=== PATIENT | female | born 1955 | race Caucasian/White ===

== ENCOUNTER 2023-01-15 11:41 | Outpatient (CLI) | payer OTHER, SELFPAY | END 2023-01-15 11:42 | disposition home or self-care (01) | PROVIDERS: PCP Family Medicine; Visit Provider Family Medicine | DX: M35.00 Sjogren syndrome, unspecified (principal); I10 Essential (primary) hypertension; R73.03 Prediabetes; R53.83 Other fatigue; E66.01 Morbid (severe) obesity due to excess calories | CPT/HCPCS: 80053; 80061; 82043; 82306; 82570; 82607; 83735; 84443 ==

== ENCOUNTER 2023-05-18 11:15 | Outpatient (RCR) | payer OTHER, SELFPAY | END 2023-09-15 23:59 | disposition home or self-care (01) | PROVIDERS: PCP Family Medicine; Visit Provider Family Medicine | DX: M54.41 Lumbago with sciatica, right side (principal); M54.42 Lumbago with sciatica, left side; G89.29 Other chronic pain; M35.00 Sjogren syndrome, unspecified; M19.90 Unspecified osteoarthritis, unspecified site; Z51.89 Encounter for other specified aftercare | CPT/HCPCS: 97110; 97162 ==

== ENCOUNTER 2023-08-19 11:26 | Outpatient (CLI) | payer OTHER, SELFPAY | END 2023-08-19 11:27 | disposition home or self-care (01) | LOC: FRMREF 11:27 | PROVIDERS: PCP Family Medicine; Visit Provider Family Medicine | DX: E87.6 Hypokalemia (principal) | CPT/HCPCS: 80048 ==

== ENCOUNTER 2024-04-22 10:02 | Inpatient (IN) | payer OTHER, SELFPAY ==
[2024-04-22] VITALS (31 sets, daily range): BP systolic 107–140; BP diastolic 47–91; PULSE 83–97; RESP 18–24; TEMP 36.4–36.9; O2SAT 90–97; BMI 49.4; BMI 49.6
--- NOTE | 2024-04-22 10:42 | ED.GENADULT ---
HPI - General Adult General Time Seen by Provider: 10:42 Date Seen: 04/22/24 Chief complaint: Weakness Stated complaint: difficulty breathing or GI block or kidney inf Time Seen by Provider: 04/22/24 10:42 Source: patient, family and RN notes reviewed Mode of arrival: wheelchair Limitations: no limitations History of Present Illness HPI narrative: This 68-year-old female is coming in with ongoing fatigue and weakness. Over a week ago she thought she was getting the flu. She also went to physical therapy for the 1st time and notes her muscles hurt. day, yesterday she had a terrible headache and she has been having abdominal pain as well. She is run temperatures, been sleeping more. She has a sore throat, nasal congestion. She does have a history of Sjogren's. She has been trying the ice problematic areas and rest. She is feeling excessively weak, feels like she can not walker keep her balance. She did improve some, ended up going to work on Thursday and then had rebound of symptoms yesterday. She has not been able to check her temperature she does not have a thermometer but has felt like she has had temperatures and is chilled at times. She feels like she is still passing some gas, had bowel movements yesterday. She stating her whole stomach hurts. She states her lungs do not feel right, she is endorsing postnasal drainage. She does have some cough but it certainly not excessive. She is not feeling short of breath. Her overall complaint is fatigue and weakness. She did do a home COVID test early on and was negative. She states she has had COVID multiple times before. Related Data Home Medications ?Medication ?Instructions ?Recorded ?Confirmed hydroxychloroquine 200 mg tablet mg PO TID 01/15/23 12/03/23 vitamin B complex 1 tab PO QDAY 08/19/23 12/03/23 Previous Rx's ?Medication ?Instructions ?Recorded albuterol sulfate 90 mcg/actuation 2 inh inhalation Q6-8H PRN 10/14/23 aerosol inhaler shortness of breath or wheezing #8.5 grams amlodipine 5 mg tablet 5 mg PO QDAY #90 tabs 10/14/23 celecoxib 400 mg capsule 400 mg PO QDAY #90 caps 10/14/23 duloxetine 60 mg capsule,delayed 60 mg PO QDAY #90 caps 10/14/23 release lisinopril 20 2 tab PO DAILY #180 tabs 10/14/23 mg-hydrochlorothiazide 12.5 mg tablet potassium chloride 20 mEq 20 meq PO DAILY #90 tabs 11/09/23 tablet,extended release(part/cryst) gabapentin 600 mg tablet 600 mg PO TID #270 tabs 04/12/24 Allergies Allergy/AdvReac Type Severity Reaction Status Date / Time penicillin V Allergy Mild Unknown Verified 04/22/24 13:11 silver Allergy Unknown infection Verified 04/22/24 13:11 titanium Allergy Unknown infection Verified 04/22/24 13:11 Review of Systems Status of ROS: Reports: 6 or more systems reviewed and unremarkable except as noted in History and below [facility] Medical History Positive colorectal cancer screening using DNA-based stool test ?R19.5 - Other fecal abnormalities (ICD-10) Methicillin resistant Staphylococcus aureus infection (10/09/10) ?A49.02 - Methicillin resistant Staphylococcus aureus infection, unspecified site (ICD-10) Basal cell carcinoma (12/08/08) ?C44.91 - Basal cell carcinoma of skin, unspecified (ICD-10) Surgical History History of ankle surgery (2009) ?Z98.890 - Other specified postprocedural states (ICD-10) History of tonsillectomy (12/08/08) ?Z90.89 - Acquired absence of other organs (ICD-10) History of hysterectomy (12/08/08) ?Z90.710 - Acquired absence of both cervix and uterus (ICD-10) History of dilation and curettage (12/08/08) ?Z98.890 - Other specified postprocedural states (ICD-10) History of colonoscopy ?Z98.890 - Other specified postprocedural states (ICD-10) History of cholecystectomy (12/08/08) ?Z90.49 - Acquired absence of other specified parts of digestive tract (ICD-10) Family History Other Alzheimers disease High blood pressure Substance abuse Social History Narrative: 3 children Non-smoker Smoking Status: Never smoker Little interest or pleasure in doing things: not at all Feeling down, depressed, or hopeless: several days Exam Const: Vital Signs, click to edit/add: Vital Signs - 24 hr 04/22/24 10:09 04/22/24 10:46 04/22/24 11:18 Temperature 97.5 F L Pulse Rate 91 Pulse Rate [Pulse Oximeter] 91 Respiratory Rate 22 Blood Pressure 132/63 Blood Pressure [Ri ght Upper Arm] 140/54 H Pulse Oximetry 95 93 93 Oxygen Delivery Me thod Room Air 04/22/24 11:19 04/22/24 11:30 04/22/24 11:32 Temperature Pulse Rate 95 87 89 Pulse Rate [Pulse Oximeter] Respiratory Rate Blood Pressure 129/56 L Blood Pressure [Ri ght Upper Arm] Pulse Oximetry 93 92 Oxygen Delivery Me thod 04/22/24 11:45 04/22/24 12:00 04/22/24 12:02 Temperature Pulse Rate 87 89 87 Pulse Rate [Pulse Oximeter] Respiratory Rate Blood Pressure 111/61 Blood Pressure [Ri ght Upper Arm] Pulse Oximetry 93 93 94 Oxygen Delivery Me thod 04/22/24 12:03 04/22/24 12:15 04/22/24 12:30 Temperature Pulse Rate 87 90 92 Pulse Rate [Pulse Oximeter] Respiratory Rate Blood Pressure Blood Pressure [Ri ght Upper Arm] Pulse Oximetry 94 92 90 Oxygen Delivery Me thod 04/22/24 12:32 04/22/24 12:45 04/22/24 13:09 Temperature Pulse Rate 90 90 89 Pulse Rate [Pulse Oximeter] Respiratory Rate Blood Pressure 119/53 L Blood Pressure [Ri ght Upper Arm] Pulse Oximetry 91 92 95 Oxygen Delivery Me thod 04/22/24 13:15 04/22/24 13:24 04/22/24 13:31 Temperature Pulse Rate 86 91 90 Pulse Rate [Pulse Oximeter] Respiratory Rate Blood Pressure 133/63 Blood Pressure [Ri ght Upper Arm] Pulse Oximetry 92 94 94 Oxygen Delivery Me thod 04/22/24 13:32 Temperature Pulse Rate 91 Pulse Rate [Pulse Oximeter] Respiratory Rate Blood Pressure 131/89 Blood Pressure [Ri ght Upper Arm] Pulse Oximetry 94 Oxygen Delivery Me thod This 68-year-old female is alert, interactive, no apparent distress. She does have significant obesity. Sclera clear, conjugate gaze. Symmetrical facial function. She of some mild erythema in the posterior pharynx, looks have a small whitish lesion just to the right of the base of her uvula but the uvula is not swollen or enlarged. Speech is normal, able to speak in complete sentences. Neck thick but no masses or adenopathy. Lungs are clear, good air entry, wheeze or crackles. CV regular rate and rhythm, soft systolic ejection murmur heard upper sternal borders. Normal S1-S2 no S3-S4. Abdomen is obese but soft, mild diffuse tenderness. Body habitus makes it difficult for definitive abdominal examination but do not feel any masses, organomegaly at this time. She is moving extremities equally, no evidence of any rash noted. She was brought back in a wheelchair due to her complaints of weakness. Documenting provider has reviewed patient's vital signs: yes Course Course ED Course: This patient is coming in with complaints of pain, weakness fatigue, infectious etiology are certainly a concern here including COVID which we have been seen again. With her abdominal pain this certainly also maybe intra-abdominal pathology, urinary, other sources will be considered. She is giving some nonspecific lung complaints, will do imaging of her chest abdomen pelvis just to see if we can find the source of her complaints. Reevaluation(s) Time of Reevaluation #1: 12:55 Reevaluation #1: Have reviewed patient's urinalysis, will initiate Rocephin for presumed urinary tract infection. Still awaiting CT imaging to be done. Patient was given some Tylenol for complaint of low back pain, nursing staff also gave her an ice pack which is reportedly helping. Consultations Consultation #1: Reviewed with the night hospitalist Dr. Erazo. He is going to look at this patient, see if she is appropriate to stay here or we can look at transfer if need be although it seems that bed availability may be problematic elsewhere. 2:33pm: Dr. Erazo is down here to see patient, besides the right kidney changes, there is right lung changes concerning for pneumonia. Her white blood count is elevated, C reactive protein and procalcitonin elevated. Her hemodynamics are stable common no evidence for sepsis based on this. Will add in 500 mg oral azithromycin upon discussion with Dr. Erazo. This will cover for pneumonia. IV Rocephin should be sufficient for the urinary tract infection, pyelonephritis. There is no definitive abscess formation at this time. I a had looked at her prior records, no evidence of any prior urine cultures. Time: 14:15 Vital Signs Vital signs: Initial Vital Signs Temperature 97.5 F L 04/22/24 10:09 Temperature Source Temporal Artery Scan 04/22/24 10:09 Pulse Rate 91 04/22/24 10:09 Respiratory Rate 22 04/22/24 10:09 Blood Pressure 140/54 H 04/22/24 10:09 Blood Pressure Mean 82 04/22/24 10:09 Blood Pressure Position Supine 04/22/24 10:09 Pulse Oximetry 95 04/22/24 10:09 Oxygen Delivery Method Room Air 04/22/24 10:09 Vital Signs Temperature 97.5 F L 04/22/24 10:09 Pulse Rate 91 04/22/24 10:09 Respiratory Rate 22 04/22/24 10:09 Blood Pressure 140/54 H 04/22/24 10:09 Pulse Oximetry 95 04/22/24 10:09 Oxygen Delivery Method Room Air 04/22/24 10:09 Temperature 97.5 F L 04/22/24 10:09 Pulse Rate 91 04/22/24 13:32 Respiratory Rate 22 04/22/24 10:09 Blood Pressure 131/89 04/22/24 13:32 Pulse Oximetry 94 04/22/24 13:32 Oxygen Delivery Method Room Air 04/22/24 10:09 Medications Administered Medications: Discontinued Medications Generic Name Dose Route Start Last Admin Trade Name Willie PRN Reason Stop Dose Admin Acetaminophen 1,000 mg 04/22/24 12:33 04/22/24 13:25 Acetaminophen 500 Mg Tablet PO 04/22/24 12:34 1,000 mg ONCE ONE Administration Ceftriaxone Sodium 2 gm/ 100 mls @ 200 mls/hr 04/22/24 12:56 04/22/24 14:05 Sodium Chloride IVPB 04/22/24 12:57 Infused ONCE ONE Infusion Medical Decision Making Lab Data Lab results reviewed: Yes I reviewed the patient's lab results Labs: Lab Results 04/22/24 04/22/24 04/22/24 Range/Units 11:00 11:30 11:45 WBC 22.15 H (4.50-11.00) K/uL RBC 4.25 (4.00-5.20) m/uL Hgb 12.2 (12.0-16.0) gm/dL Hct 37.2 (33.0-51.0) % MCV 88 (80-100) fL MCH 29 (26-34) pg MCHC 33 (32-36) gm/dL RDW Coeff of Dianna 15.5 (11.5-15.5) % Plt Count 208 (140-440) K/uL Neut % (Auto) 88.5 H (42.0-72.0) % Lymph % (Auto) 3.6 L (20-44) % [place] % (Auto) 6.0 (0.0-11.0) % Eos % (Auto) 0.6 (0.0-7.0) % Baso % (Auto) 0.3 (0.0-3.0) % Neut # (Auto) 19.60 H (1.7-7.0) K/uL Lymph # (Auto) 0.80 L (0.90-2.90) K/uL [place] # (Auto) 1.30 H (0.00-0.90) K/UL Eos # (Auto) 0.10 (0.00-0.50) K/uL Baso # (Auto) 0.10 (0.00-0.30) K/uL Abs Immat Gran (auto) 0.20 (0.00-0.30) K/uL Imm/Tot Granulo (auto) 1.0 % VBG pH 7.473 H (7.32-7.43) VBG pCO2 38 L (40-50) mmHG VBG pO2 42.2 (25-47) mmHG VBG HCO3 28 (21-28) mmol/L Sodium 136 (135-149) mmol/L Potassium 3.9 (3.6-5.1) mmol/L Chloride 103 (96-114) mmol/L Carbon Dioxide 25 (20-32) mmol/L Anion Gap 8 (7-15) mEq/L BUN 31 H (7-30) mg/dL Creatinine 1.5 (0.5-1.5) mg/dL Estimated Creat Clear 30.57 Estimated GFR 37 ml/min Glucose 119 H (60-115) mg/dL Lactate 1.0 (0.5-1.9) mmol/L Calcium 8.7 (8.4-10.6) mg/dL Total Bilirubin 2.2 H (0.1-1.5) mg/dL AST 38 H (12-35) U/L ALT 31 (4-35) U/L Alkaline Phosphatase 231 H (40-150) U/L Troponin I 0.04 (0.01-0.04) ng/mL C-Reactive Protein 18.2 H (0.5-1.0) mg/dL NT-Pro-B Natriuret Pep 2660 pg/mL Total Protein 5.9 L (6.0-8.3) g/dL Albumin 3.1 L (3.3-5.0) g/dL Procalcitonin 17.40 H (<0.50) ng/mL Urine Color Henna A (Yellow) Urine Appearance Slightly Cloudy A (Clear) Urine pH 6.0 (5.0-8.5) Ur Specific [place] 1.020 (1.000-1.030) Urine Protein 1+ A (Negative) Urine Glucose (UA) Negative (Negative) Urine Ketones Negative (Negative) Urine Blood 2+ A (Negative) Urine Nitrite Positive A (Negative) Urine Bilirubin Negative (Negative) Urine Urobilinogen 2.0 A (0.2-1.0) Ur Leukocyte Esterase 1+ A (Negative) Urine RBC 2-5 A (0-2) Urine WBC 2-5 (0-5) Ur Squamous Epith Cells Few (None-Few) Urine Bacteria Many A (None) SARS-CoV-2 (PCR) Negative SARS-CoV-2 (Negative) Influenza Type A (PCR) Negative PCR FLU A (Negative) Influenza Type B (PCR) Negative PCR FLU B (Negative) RSV (PCR) Negative PCR RSV (Negative) Imaging Data CT Chest/Ab/Pelvis: Attestation: I have reviewed the pertinent imaging results. Radiologist's impression: Patient: SUE GUERRA Facility:?[facility] Patient ID:?[id number] Site Patient ID:?[id number]. Site :?[id number] Study:?CT-Chest/Abd/Pelvis 142CC ISOVUE 370-04/22/2024 1:10:43 PM Ordering Physician:Kelsey Sood Final Report: INDICATION: FEVER, WEAKNESS, ABD PAIN, SOB TECHNIQUE: CT chest, abdomen and pelvis acquired with 142 ml of Isovue 370 IV contrast. COMPARISON: None. FINDINGS: CHEST: Cardiovascular structures: Heart size is normal. Thoracic aorta and main pulmonary artery are normal in caliber. Mediastinum and alex: Prominent paratracheal lymph node (2/20). Prominent right hilar lymph nodes (2/46). Lungs and pleura: Multiple nodular ground glass opacities clustered in the right upper lobe, likely infectious or inflammatory in etiology. Chest wall and axilla: No mass or adenopathy. Bones: No suspicious bone lesions. Unremarkable for age. ABDOMEN AND PELVIS: Liver: Enlarged left hepatic lobe and caudate, can be seen in setting of cirrhotic morphology. No suspicious hepatic lesions identified. Gallbladder and bile ducts: Gallbladder is absent. No intra or extrahepatic biliary ductal dilatation. Pancreas: Unremarkable. Spleen: Unremarkable. Adrenal glands: Unremarkable. Kidneys: Heterogeneous enhancement in the right kidney with areas ill-defined hypodensity. Multiple too small to characterize hypodensities bilaterally. Mild perinephric stranding noted surrounding the right kidney. There is right ureteral subtle mucosal enhancement. Minimal right hydronephrosis. No left hydronephrosis or hydroureter. GI tract: Unremarkable. Vascular structures: Unremarkable. Lymph nodes: Unremarkable. Miscellaneous: Unremarkable. No free air or significant free fluid. Pelvic Organs: Unremarkable. Bones: No suspicious bone lesions. Unremarkable for age. IMPRESSION: 1. Nodular ground-glass opacities clustered in the right upper lobe may be infectious or inflammatory in etiology. Mildly prominent mediastinal and right hilar lymph nodes likely reactive. 2. Ill-defined hypodensities in the right kidney with subtle hydronephrosis and mild mucosal enhancement in the collecting system and proximal ureter concerning for urinary infection and pyelonephritis. The ill-defined hypodensities may be related to underlying phlegmon formation in the setting of pyelonephritis. Correlate with clinical and laboratory findings. Please note that all CT scans at this facility use dose modulation, iterative reconstruction, and/or weight-based dosing when appropriate to reduce radiation dose to as low as reasonably achievable. Dictated by Celeste Price MD @ 04/22/2024 2:08:34 PM (Electronic Signature) ECG Data Attestation: I personally reviewed and interpreted this ECG as follows: (Sinus rhythm, 86 beats per minute. No acute ischemic change, no prior infarct.) Prior ECG tracings: not available for review Discharge Plan Discharge Clinical Impression: Acute pyelonephritis Right upper lobe pneumonia Qualifiers: Pneumonia type: due to unspecified organism Qualified Code(s): J18.9 - Pneumonia, unspecified organism Patient Disposition: Admitted As Observation Prescriptions: No Action hydroxychloroquine 200 mg tablet PO TID vitamin B complex Tablet 1 tab PO QDAY duloxetine 60 mg capsule,delayed release(DR/EC) 60 mg PO QDAY Qty: 90 1RF celecoxib 400 mg capsule 400 mg PO QDAY Qty: 90 1RF amlodipine 5 mg tablet 5 mg PO QDAY Qty: 90 1RF albuterol sulfate 90 mcg/actuation HFA aerosol inhaler 2 inh inhalation Q6-8H PRN (Reason: shortness of breath or wheezing) Qty: 8.5 1RF lisinopril-hydrochlorothiazide 20-12.5 mg tablet 2 tab PO DAILY Qty: 180 1RF potassium chloride 20 mEq tablet,ER particles/crystals 20 meq PO DAILY Qty: 90 2RF gabapentin 600 mg tablet 600 mg PO TID Qty: 270 0RF Follow Up/Referrals: Poly Tello DO [Primary Care Provider] -
--- NOTE | 2024-04-22 10:46 | CRLHL7_ITS ---
For Patients: As a result of the Century Cures Act, medical imaging exams and procedure reports are released immediately into your electronic medical record. You may view this report before your referring provider. If you have questions, please contact your health care provider. INDICATION: FEVER, WEAKNESS, ABD PAIN, SOB TECHNIQUE: CT chest, abdomen and pelvis acquired with 142 ml of Isovue 370 IV contrast. COMPARISON: None. FINDINGS: CHEST: Cardiovascular structures: Heart size is normal. Thoracic aorta and main pulmonary artery are normal in caliber. Mediastinum and alex: Prominent paratracheal lymph node (2/20). Prominent right hilar lymph nodes (2/46). Lungs and pleura: Multiple nodular ground glass opacities clustered in the right upper lobe, likely infectious or inflammatory in etiology. Chest wall and axilla: No mass or adenopathy. Bones: No suspicious bone lesions. Unremarkable for age. ABDOMEN AND PELVIS: Liver: Enlarged left hepatic lobe and caudate, can be seen in setting of cirrhotic morphology. No suspicious hepatic lesions identified. Gallbladder and bile ducts: Gallbladder is absent. No intra or extrahepatic biliary ductal dilatation. Pancreas: Unremarkable. Spleen: Unremarkable. Adrenal glands: Unremarkable. Kidneys: Heterogeneous enhancement in the right kidney with areas ill-defined hypodensity. Multiple too small to characterize hypodensities bilaterally. Mild perinephric stranding noted surrounding the right kidney. There is right ureteral subtle mucosal enhancement. Minimal right hydronephrosis. No left hydronephrosis or hydroureter. GI tract: Unremarkable. Vascular structures: Unremarkable. Lymph nodes: Unremarkable. Miscellaneous: Unremarkable. No free air or significant free fluid. Pelvic Organs: Unremarkable. Bones: No suspicious bone lesions. Unremarkable for age. IMPRESSION: 1. Nodular ground-glass opacities clustered in the right upper lobe may be infectious or inflammatory in etiology. Mildly prominent mediastinal and right hilar lymph nodes likely reactive. 2. Ill-defined hypodensities in the right kidney with subtle hydronephrosis and mild mucosal enhancement in the collecting system and proximal ureter concerning for urinary infection and pyelonephritis. The ill-defined hypodensities may be related to underlying phlegmon formation in the setting of pyelonephritis. Correlate with clinical and laboratory findings. Please note that all CT scans at this facility use dose modulation, iterative reconstruction, and/or weight-based dosing when appropriate to reduce radiation dose to as low as reasonably achievable. Dictated by Celeste Price MD @ 04/22/2024 2:08:34 PM (Electronically Signed)
[2024-04-22 11:54] LABS: PCR FLU A Negative PCR FLU A (Negative); PCR FLU B Negative PCR FLU B (Negative); PCR RSV Negative PCR RSV (Negative); SARS PCR* Negative SARS-CoV-2 (Negative)
[2024-04-22 11:58] LABS: HCO3 VBG 28 mmol/L (21-28); PCO2 VBG 38 mmHG (40-50); PO2 VBG 42.2 mmHG (25-47); pH VBG 7.473 (7.32-7.43)
[2024-04-22 12:09] LABS: Appearance Urine Slightly Cloudy (Clear); Bilirubin Urine Negative (Negative); Blood Urine 2+ (Negative); Color Urine Amber (Yellow); Glucose Urine Negative (Negative); Ketones Urine Negative (Negative); Leukocyte Esterase Urine 1+ (Negative); Nitrite Urine Positive (Negative); Protein Urine 1+ (Negative)
[2024-04-22 12:20] LABS: Albumin* 3.1 g/dL (3.3-5.0); Chloride* 103 mmol/L (96-114); Potassium* 3.9 mmol/L (3.6-5.1); Sodium* 136 mmol/L (135-149)
[2024-04-22 12:22] LABS: Bilirubin Total* 2.2 mg/dL (0.1-1.5); Creatinine* 1.5 mg/dL (0.5-1.5); Est. Creatinine Clearance* 30.57; Estimated Glomerular Filt Rate 37 ml/min
[2024-04-22 12:23] LABS: Alanine Aminotransferase* 31 U/L (4-35); Anion Gap 8 mEq/L (7-15); Aspartate Amino Transferase* 38 U/L (12-35); Blood Urea Nitrogen* 31 mg/dL (7-30); Carbon Dioxide* 25 mmol/L (20-32); Glucose* 119 mg/dL (60-115); Total Protein* 5.9 g/dL (6.0-8.3)
[2024-04-22 12:24] LABS: Calcium* 8.7 mg/dL (8.4-10.6)
[2024-04-22 12:30] LABS: Bacteria Urine Many; Squamous Epithelial Cell Urine Few (None-Few)
[2024-04-22 12:36] LABS: Troponin I* 0.04 ng/mL (0.01-0.04)
[2024-04-22 12:37] LABS: C Reactive Protein* 18.2 mg/dL (0.5-1.0); NT Pro B Type NatriureticPept* 2660 pg/mL
[2024-04-22 12:49] LABS: Alkaline Phosphatase* 231 U/L (40-150)
[2024-04-22 13:15] LABS: Basophils Percent Auto 0.3 % (0.0-3.0); Eosinophils Percent Auto 0.6 % (0.0-7.0); Hematocrit 37.2 % (33.0-51.0); Hemoglobin* 12.2 gm/dL (12.0-16.0); Lymphocytes Percent Auto 3.6 % (20-44); Mean Corpuscular HGB Conc 33 gm/dL (32-36); Mean Corpuscular Hemoglobin 29 pg (26-34); Mean Corpuscular Volume 88 fL (80-100); Neutrophils Percent Auto 88.5 % (42.0-72.0); Platelet Count* 208 K/uL (140-440); RDW Coefficient of Variation % 15.5 % (11.5-15.5); Red Blood Count 4.25 m/uL (4.00-5.20); White Blood Count* 22.15 K/uL (4.50-11.00)
[2024-04-22 13:18] LABS: Slide Review Reflex No
[2024-04-22] MEDS: cefTRIAXone 2 GM in 0.9 % SODIUM CHLORIDE Mini-bag 100 ML IVPB (13:20)
[2024-04-22] MEDS: ACETAMINOPHEN 500 MG TABLET 1000 MG PO (13:25)
[2024-04-22] MEDS: AZITHROMYCIN 250 MG TABLET 500 MG PO (15:10)
--- NOTE | 2024-04-22 15:27 | ED.NURSE ---
Pt to room 261
--- NOTE | 2024-04-22 15:28 | ED.NURSE ---
Patient report given to lara RN, pt to room 261.
--- NOTE | 2024-04-22 15:31 | P.IMHP_ITS ---
Hospitalist- H&P: HPI History of Present Illness Date Seen: 04/22/24 Chief complaint: difficulty breathing or GI block or kidney inf Narrative: Rina Ji is a 68 year old female with Sjogren's, morbid obesity, hypertension, sleep apnea presents to the emergency department with a 9 day history of illness. Nine days ago she reported feeling generalized achiness. Pain is not unusual for her with her Sjogren's and arthritis. on this day was much worse than usual. The next day she also had a very bad headache in began to have an upset stomach. She developed fatigue malaise weakness and brain fog which progressively got worse over the subsequent week. Six days prior to admission she checked a COVID test which was negative. Four days prior to admission she began to have chills. She was spending much of the time in the past week in bed. She is able to walk but reports feeling unsteady on her feet and her hands and feet feel weak and shaky. She has been eating very little and drinking very little. She has not had vomiting. She reports her stools are normal brown and small caliber without blood. Urination has been relatively normal for her. She is not had a fever but has had subjective chills. She has had cough and dyspnea in the last few days as well. No chest pain. Review of Systems Narrative: Review of systems unremarkable except as noted above [facility] Medical History (Updated 04/22/24 @ 15:44 by Janusz Erazo MD) Acute kidney injury ?N17.9 - Acute kidney failure, unspecified (ICD-10) Hepatitis ?K75.9 - Inflammatory liver disease, unspecified (ICD-10) Osteoarthritis ?M19.90 - Unspecified osteoarthritis, unspecified site (ICD-10) Asthma (12/08/08) ?J45.909 - Unspecified asthma, uncomplicated (ICD-10) Hypertension (12/08/08) ?I10 - Essential (primary) hypertension (ICD-10) Obstructive sleep apnea syndrome (11/29/10) ?G47.33 - Obstructive sleep apnea (adult) (pediatric) (ICD-10) Obesity ?E66.9 - Obesity, unspecified (ICD-10) Osteoarthritis of right knee ?M17.11 - Unilateral primary osteoarthritis, right knee (ICD-10) Osteoarthritis of left knee ?M17.12 - Unilateral primary osteoarthritis, left knee (ICD-10) Chronic low back pain with bilateral sciatica ?M54.41 - Lumbago with sciatica, right side (ICD-10) ?M54.42 - Lumbago with sciatica, left side (ICD-10) ?G89.29 - Other chronic pain (ICD-10) Major depressive disorder, recurrent episode with anxious distress ?F33.9 - Major depressive disorder, recurrent, unspecified (ICD-10) Sjogren's syndrome ?M35.00 - Sjogren syndrome, unspecified (ICD-10) Positive colorectal cancer screening using DNA-based stool test ?R19.5 - Other fecal abnormalities (ICD-10) Methicillin resistant Staphylococcus aureus infection (10/09/10) ?A49.02 - Methicillin resistant Staphylococcus aureus infection, unspecified site (ICD-10) Basal cell carcinoma (12/08/08) ?C44.91 - Basal cell carcinoma of skin, unspecified (ICD-10) Surgical History History of ankle surgery (2009) ?Z98.890 - Other specified postprocedural states (ICD-10) History of tonsillectomy (12/08/08) ?Z90.89 - Acquired absence of other organs (ICD-10) History of hysterectomy (12/08/08) ?Z90.710 - Acquired absence of both cervix and uterus (ICD-10) History of dilation and curettage (12/08/08) ?Z98.890 - Other specified postprocedural states (ICD-10) History of colonoscopy ?Z98.890 - Other specified postprocedural states (ICD-10) History of cholecystectomy (12/08/08) ?Z90.49 - Acquired absence of other specified parts of digestive tract (ICD- 10) Family History Other Alzheimers disease High blood pressure Substance abuse Social History (Updated 04/22/24 @ 15:36 by Janusz Erazo MD) Narrative: she lives in [place] with her daughter and son-in-law and 4 grandchildren and 3 cats and 2 dogs. She reports this is generally going well. She is hoping to sell her house and move to [place] where her son and other grandchildren are located. 3 children Non-smoker She rarely drinks alcohol. Code status is full Smoking Status: Never smoker Do you use any of these nicotine containing products: None How often do you have a drink containing alcohol: never How often do you have six or more drinks on one occasion: Never AUDIT-C Alcohol total score: 0 Non-prescribed substance use: denies use Little interest or pleasure in doing things: not at all Feeling down, depressed, or hopeless: several days Meds Home Medications and Allergies Home Medications ?Medication ?Instructions ?Recorded ?Confirmed ?Type hydroxychloroquine 200 mg tablet mg PO TID 01/15/23 12/03/23 History vitamin B complex 1 tab PO QDAY 08/19/23 12/03/23 History Allergies Allergy/AdvReac Type Severity Reaction Status Date / Time penicillin V Allergy Mild Unknown Verified 04/22/24 13:11 silver Allergy Unknown infection Verified 04/22/24 13:11 titanium Allergy Unknown infection Verified 04/22/24 13:11 Exam Narrative: Exam Narrative: she is alert and appears in no obvious distress. Eyes normal. Oropharynx with small airway. Dry mucous membranes. Neck is supple without mass or adenopathy. No stridor. Respirations are clear to auscultation. She has decreased breath sounds. Cardiovascular: S1, S2, regular rate and rhythm. 1/6 systolic ejection murmur. Somewhat distant heart sounds. Abdomen: Bowel sounds active. Abdomen is soft without tenderness or mass. External genitalia normal. Abdominal skin folds are without marked erythema. Extremities with trace edema bilaterally. She has intact pedal pulses and intact sensation. She moves all 4 extremities well. There is no obvious inflammatory arthritis, erythematous or swollen joints. She is tender over her low back but no apparent trauma on inspection. Const: Vital Signs, click to edit/add: Vital Signs - 24 hr 04/22/24 10:09 04/22/24 10:46 04/22/24 11:18 Temperature 97.5 F L Pulse Rate 91 Pulse Rate [Pulse Oximeter] 91 Respiratory Rate 22 Blood Pressure 132/63 Blood Pressure [Ri ght Upper Arm] 140/54 H Pulse Oximetry 95 93 93 Oxygen Delivery Me thod Room Air 04/22/24 11:19 04/22/24 11:30 04/22/24 11:32 Temperature Pulse Rate 95 87 89 Pulse Rate [Pulse Oximeter] Respiratory Rate Blood Pressure 129/56 L Blood Pressure [Ri ght Upper Arm] Pulse Oximetry 93 92 Oxygen Delivery Hi thod 04/22/24 11:45 04/22/24 12:00 04/22/24 12:02 Temperature Pulse Rate 87 89 87 Pulse Rate [Pulse Oximeter] Respiratory Rate Blood Pressure 111/61 Blood Pressure [Ri ght Upper Arm] Pulse Oximetry 93 93 94 Oxygen Delivery Hi thod 04/22/24 12:03 04/22/24 12:15 04/22/24 12:30 Temperature Pulse Rate 87 90 92 Pulse Rate [Pulse Oximeter] Respiratory Rate Blood Pressure Blood Pressure [Ri ght Upper Arm] Pulse Oximetry 94 92 90 Oxygen Delivery Hi thod 04/22/24 12:32 04/22/24 12:45 04/22/24 13:09 Temperature Pulse Rate 90 90 89 Pulse Rate [Pulse Oximeter] Respiratory Rate Blood Pressure 119/53 L Blood Pressure [Ri ght Upper Arm] Pulse Oximetry 91 92 95 Oxygen Delivery Hi thod 04/22/24 13:15 04/22/24 13:24 04/22/24 13:31 Temperature Pulse Rate 86 91 90 Pulse Rate [Pulse Oximeter] Respiratory Rate Blood Pressure 133/63 Blood Pressure [Ri ght Upper Arm] Pulse Oximetry 92 94 94 [facility] 04/[facility]/24 13:32 04/22/24 13:33 04/22/24 13:45 Temperature Pulse Rate 91 89 88 Pulse Rate [Pulse Oximeter] Respiratory Rate Blood Pressure 131/89 Blood Pressure [Ri ght Upper Arm] Pulse Oximetry 94 93 92 Oxygen Delivery Hi thod 04/22/24 14:00 04/22/24 14:02 04/22/24 14:15 Temperature Pulse Rate 89 88 88 Pulse Rate [Pulse Oximeter] Respiratory Rate Blood Pressure 115/56 L Blood Pressure [Ri ght Upper Arm] Pulse Oximetry 91 91 91 Oxygen Delivery Hi thod 04/22/24 14:30 04/22/24 14:32 04/22/24 14:45 Temperature Pulse Rate 85 84 85 Pulse Rate [Pulse Oximeter] Respiratory Rate Blood Pressure 107/56 L Blood Pressure [Ri ght Upper Arm] Pulse Oximetry 92 92 93 Oxygen Delivery Hi thod 04/22/24 15:13 Temperature 98.4 F Pulse Rate Pulse Rate [Pulse Oximeter] Respiratory Rate 18 Blood Pressure Blood Pressure [Ri ght Upper Arm] Pulse Oximetry Oxygen Delivery Me thod Documenting provider has reviewed patient's vital signs: yes Hospitalist - H&P: Result Labs Labs: Short CBC 04/22/24 Range/Units 11:45 WBC 22.15 H (4.50-11.00) K/uL Hgb 12.2 (12.0-16.0) gm/dL Hct 37.2 (33.0-51.0) % Plt Count 208 (140-440) K/uL BMP 04/22/24 11:45 Sodium 136 Potassium 3.9 Chloride 103 Carbon Dioxide 25 BUN 31 H Creatinine 1.5 Glucose 119 H Calcium 8.7 Cardiac Enzymes 04/22/24 Range/Units 11:45 Troponin I 0.04 (0.01-0.04) ng/mL Liver Function 04/22/24 Range/Units 11:45 Total Bilirubin 2.2 H (0.1-1.5) mg/dL AST 38 H (12-35) U/L ALT 31 (4-35) U/L Alkaline Phosphatase 231 H (40-150) U/L Albumin 3.1 L (3.3-5.0) g/dL Urine 04/22/24 Range/Units 11:30 Urine Color Henna A (Yellow) Urine Appearance Slightly Cloudy A (Clear) Urine pH 6.0 (5.0-8.5) Ur Specific [place] 1.020 (1.000-1.030) Urine Protein 1+ A (Negative) Urine Glucose (UA) Negative (Negative) Imaging CT Chest/Ab/Pelvis: Radiologist's impression: INDICATION: FEVER, WEAKNESS, ABD PAIN, SOB TECHNIQUE: CT chest, abdomen and pelvis acquired with 142 ml of Isovue 370 IV contrast. COMPARISON: None. FINDINGS: CHEST: Cardiovascular structures: Heart size is normal. Thoracic aorta and main pulmonary artery are normal in caliber. Mediastinum and alex: Prominent paratracheal lymph node (2/20). Prominent right hilar lymph nodes (2/46). Lungs and pleura: Multiple nodular ground glass opacities clustered in the right upper lobe, likely infectious or inflammatory in etiology. Chest wall and axilla: No mass or adenopathy. Bones: No suspicious bone lesions. Unremarkable for age. ABDOMEN AND PELVIS: Liver: Enlarged left hepatic lobe and caudate, can be seen in setting of cirrhotic morphology. No suspicious hepatic lesions identified. Gallbladder and bile ducts: Gallbladder is absent. No intra or extrahepatic biliary ductal dilatation. Pancreas: Unremarkable. Spleen: Unremarkable. Adrenal glands: Unremarkable. Kidneys: Heterogeneous enhancement in the right kidney with areas ill-defined hypodensity. Multiple too small to characterize hypodensities bilaterally. Mild perinephric stranding noted surrounding the right kidney. There is right ureteral subtle mucosal enhancement. Minimal right hydronephrosis. No left hydronephrosis or hydroureter. GI tract: Unremarkable. Vascular structures: Unremarkable. Lymph nodes: Unremarkable. Miscellaneous: Unremarkable. No free air or significant free fluid. Pelvic Organs: Unremarkable. Bones: No suspicious bone lesions. Unremarkable for age. IMPRESSION: 1. Nodular ground-glass opacities clustered in the right upper lobe may be infectious or inflammatory in etiology. Mildly prominent mediastinal and right hilar lymph nodes likely reactive. 2. Ill-defined hypodensities in the right kidney with subtle hydronephrosis and mild mucosal enhancement in the collecting system and proximal ureter concerning for urinary infection and pyelonephritis. The ill-defined hypodensities may be related to underlying phlegmon formation in the setting of pyelonephritis. Correlate with clinical and laboratory findings. Assessment and Plan Assessment and plan (1) Right upper lobe pneumonia: Problem comment: CT images showed ground-glass opacities and patchy infiltrates primarily in the right upper lobe with right hilar lymph adenopathy also present. Status: Acute (2) Acute pyelonephritis: Problem comment: CT images show changes consistent with right kidney infection Status: Acute (3) Hepatitis: Problem comment: new elevation of total bilirubin from 0.6-2.2 in the past 15 months and increase in alk-phos from 105-231. Status post cholecystectomy Status: Acute (4) Acute kidney injury: Problem comment: new elevation of creatinine from 1.0-1.5 since last August Status: Acute (5) Obesity: Problem comment: BMI 48.8 Status: Acute (6) Hypertension: Problem comment: Due to acute kidney injury and relatively low blood pressure will hold antihy pertensive medicines temporarily Status: Acute (7) Osteoarthritis: Problem comment: Polyarthralgia. Hold Celebrex due to acute kidney injury. P.r.n. oxycodone and acetaminophen for pain Status: Acute (8) Obstructive sleep apnea syndrome: Problem comment: Sleep study (2020, est). CPAP regularly. obtain CPAP from home Status: Acute Plan 68-year-old female admitted to the hospital with a 9 day history of illness and findings consistent with pneumonia, acute pyelonephritis, acute kidney injury, acute liver injury/hepatitis. She be admitted for IV antibiotics and monitoring of multiple organ dysfunction. Assess poor oral intake and profound weakness as well. Total Time Spent Total Time Spent: Total time spent is 80 minute
[2024-04-22] MEDS: LACTATED RINGERS 500 ML 500 ML IV (17:30)
[2024-04-22] MEDS: LACTATED RINGERS 1000 ML 1,000 ML 125 ML IV (18:35)
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
[2024-04-22] MEDS: ENOXAPARIN 40 MG/0.4 ML INJ SUBCUT (20:44)
[2024-04-22] MEDS: GABAPENTIN 600 MG TABLET PO (20:44)
[2024-04-23] MEDS: LACTATED RINGERS 1000 ML 1,000 ML 125 ML IV ×3 (02:22→17:15)
[2024-04-23 02:29] VITALS: BP 122/53; PULSE 85; RESP 22; TEMP 36.5; O2SAT 98
[2024-04-23 07:00] VITALS: RESP 22; O2SAT 95
[2024-04-23 07:21] LABS: Basophils Percent Auto 0.3 % (0.0-3.0); Eosinophils Percent Auto 1.1 % (0.0-7.0); Hematocrit 37.3 % (33.0-51.0); Hemoglobin* 12.2 gm/dL (12.0-16.0); Immature Granulocytes Pct Auto 1.9 %; Lymphocytes Percent Auto 5.4 % (20-44); Mean Corpuscular HGB Conc 33 gm/dL (32-36); Mean Corpuscular Hemoglobin 29 pg (26-34); Mean Corpuscular Volume 88 fL (80-100); Monocytes Percent Auto 6.7 % (0.0-11.0); Neutrophils Percent Auto 84.6 % (42.0-72.0); Platelet Count* 239 K/uL (140-440); RDW Coefficient of Variation % 15.8 % (11.5-15.5); Red Blood Count 4.26 m/uL (4.00-5.20); White Blood Count* 20.37 K/uL (4.50-11.00)
[2024-04-23 07:24] LABS: Slide Review Reflex No
--- NOTE | 2024-04-23 07:40 | PC.NURSE ---
End of shift [id number] ? Pt alert, oriented, cooperative. Up with standby assistance in room. Pt reported pain in low back and R hip/knee. Ice packs given to increase comfort with pt reporting improvement. RN noted SOB with exertion, pt able to recover appropriately at rest. Pt reported feeling SOB while sleeping, and expressed to RN that she uses a CPAP machine at home but did not bring it to hospital. notified, O2 given per orders. Tolerating O2 at 2L via nasal cannula while sleeping. Pt appears to be resting comfortably at end of shift with call light within reach. ?
[2024-04-23 07:47] LABS: Chloride* 103 mmol/L (96-114); Sodium* 137 mmol/L (135-149)
[2024-04-23 07:48] LABS: Potassium* 3.7 mmol/L (3.6-5.1)
[2024-04-23 07:50] LABS: Anion Gap 8 mEq/L (7-15); Carbon Dioxide* 26 mmol/L (20-32); Creatinine* 1.3 mg/dL (0.5-1.5); Est. Creatinine Clearance* 35.27; Estimated Glomerular Filt Rate 45 ml/min
[2024-04-23 07:51] LABS: Alanine Aminotransferase* 28 U/L (4-35); Alkaline Phosphatase* 228 U/L (40-150); Aspartate Amino Transferase* 31 U/L (12-35); Bilirubin Direct* 1.3 mg/dL (0.0-0.5); Bilirubin Total* 1.6 mg/dL (0.1-1.5); Blood Urea Nitrogen* 24 mg/dL (7-30); Calcium* 8.8 mg/dL (8.4-10.6); Glucose* 97 mg/dL (60-115); Magnesium* 1.8 mg/dL (1.5-2.6); Total Protein* 6.1 g/dL (6.0-8.3)
[2024-04-23 08:08] LABS: C Reactive Protein* 14.9 mg/dL (0.5-1.0)
[2024-04-23 08:45] VITALS: BP 120/51; PULSE 88; RESP 22; O2SAT 95
[2024-04-23] MEDS: ONDANSETRON 2 MG/ML inj 4 MG IVP ×2 (08:56→17:15)
[2024-04-23] MEDS: OXYCODONE 5 MG TABLET PO ×2 (09:04→20:54)
[2024-04-23] MEDS: ACETAMINOPHEN 325 MG TABLET 650 MG PO ×4 (09:05→20:54)
[2024-04-23] MEDS: cefTRIAXone 2 GM in 0.9 % SODIUM CHLORIDE Mini-bag 100 ML IVPB (10:19)
[2024-04-23] MEDS: HYDROXYCHLOROQUINE 200 MG TABLET PO (10:32)
[2024-04-23] MEDS: DULOXETINE 30 MG CAPSULE DR 60 MG PO (10:32)
[2024-04-23] MEDS: POTASSIUM CHLORIDE 10 MEQ CAPSULE ER 20 MEQ PO (10:32)
[2024-04-23] MEDS: GABAPENTIN 600 MG TABLET 1200 MG PO (10:33)
[2024-04-23] MEDS: SODIUM CHLORIDE 0.9 % (FLUSH) 10 ML SYRINGE 5 ML IVF (10:34)
[2024-04-23] MEDS: AZITHROMYCIN 250 MG TABLET 500 MG PO (10:34)
--- NOTE | 2024-04-23 11:46 | PM.IMPN1 ---
Progress Note: A&P Assessment and plan (1) Right upper lobe pneumonia: Problem details: CT images showed ground-glass opacities and patchy infiltrates primarily in the right upper lobe with right hilar lymph adenopathy also present Continue ceftriaxone and azithromycin, gentle IV hydration until adequate oral intake Pulmonary hygiene including incentive spirometry, aerobika Oxygen supplementation to maintain saturations >92%, continuing to wean as able Leukocytosis down trending, Blood culture negative Status: Acute (2) Acute pyelonephritis: Problem details: CT images show changes consistent with right kidney infection. Ill-defined hypodensities in the right kidney with subtle hydronephrosis and mild mucosal enhancement in the collecting system and proximal ureter concerning for urinary infection and pyelonephritis. The ill-defined hypodensities may be related to underlying phlegmon formation in the setting of pyelonephritis Continue ceftriaxone and azithromycin, gentle IV hydration until adequate oral intake Urine culture growing Gram-negative rods Outpatient follow-up hypodensities Status: Acute (3) Hepatitis: Problem details: New elevation of total bilirubin from 0.6-2.2 in the past 15 months and increase in alk-phos from 105-231 - down trending, continue to trend CT shows Enlarged left hepatic lobe and caudate, can be seen in setting of cirrhotic morphology. No suspicious hepatic lesions identified. Status post cholecystectomy Outpatient follow-up with PCP, GI Status: Acute (4) Acute kidney injury: Problem details: New elevation of creatinine from 1.0-1.5 since last August - down trending, 1.3 Avoid nephrotoxic medications, renally dosing medications, continue to monitor Status: Acute (5) Obesity: Problem details: BMI 48.8 Status: Acute (6) Hypertension: Problem details: Due to acute kidney injury and relatively low blood pressure will hold antihypertensive medicines temporarily Will restart when appropriate Status: Acute (7) Osteoarthritis: Problem details: Polyarthralgia. Chronic low back pain Hold Celebrex due to acute kidney injury Lidocaine patch, ice and/or heat, P.r.n. oxycodone and scheduled acetaminophen for pain (monitoring LFTs) Status: Acute (8) Obstructive sleep apnea syndrome: Problem details: Sleep study (2019, est). CPAP regularly. obtain CPAP from home Status: Acute (9) Back pain: Problem details: Chronic Lidocaine patch, Tylenol, oxycodone Encourage ambulation and home exercises she has learned from PT Status: Acute Plan Continue IV antibiotics, pending clinical improvement, possible discharge with transition to oral antibiotics 1-2 days. Time Spent With Patient Total time spent: Total time spent caring for the patient today was 45 minutes. This includes time spent for the visit reviewing the chart, time spent during the visit, time spent after the visit and documentation and planning in coordination of care. Subjective Date Seen: 04/23/24 Interval history: Patient reports feeling better than on admission. Denies headache or dizziness. Denies chest pain. No shortness of breath. Complains of low back pain which has been chronic. Started physical therapy last week for this. Otherwise normally uses ice and or heat, Tylenol for the pain at home. Exam Narrative: Exam Narrative: PHYSICAL EXAM General: Pleasant, conversant, NAD HEENT: Normocephalic, atraumatic, sclera white, EOMI, oral mucosa moist Cardiovascular: RRR, S1S2. Pulmonary: CTA bilaterally without rhonchi, rales, expiratory wheezes. No dyspnea on 2 L per NC Abdominal: Soft, obese, nondistended, NTTP Neurological: Alert, answering questions appropriately, cranial nerves intact, no focal findings Extremities: No gross joint deformity or swelling. AROMI. Neurovascularly intact Skin: Warm, dry. Const: Vital Signs, click to edit/add: Vital Signs - 24 hr 04/22/24 10:09 04/22/24 10:46 04/22/24 11:18 Temperature 97.5 F L Pulse Rate 91 Pulse Rate [Pulse Oximeter] 91 Respiratory Rate 22 Blood Pressure 132/63 Blood Pressure [Ri ght Upper Arm] 140/54 H Pulse Oximetry 95 93 93 [facility] 04/22/24 11:19 04/22/24 11:30 04/22/24 11:32 Temperature Pulse Rate 95 87 89 Pulse Rate [Pulse Oximeter] Respiratory Rate Blood Pressure 129/56 L Blood Pressure [Ri ght Upper Arm] Pulse Oximetry 93 92 [facility] 04/22/24 11:45 04/22/24 12:00 04/22/24 12:02 Temperature Pulse Rate 87 89 87 Pulse Rate [Pulse Oximeter] Respiratory Rate Blood Pressure 111/61 Blood Pressure [Ri ght Upper Arm] Pulse Oximetry 93 93 94 [facility] 04/22/24 12:03 04/22/24 12:15 04/22/24 12:30 Temperature Pulse Rate 87 90 92 Pulse Rate [Pulse Oximeter] Respiratory Rate Blood Pressure Blood Pressure [Ri ght Upper Arm] Pulse Oximetry 94 92 90 [facility] 04/22/24 12:32 04/22/24 12:45 04/22/24 13:09 Temperature Pulse Rate 90 90 89 Pulse Rate [Pulse Oximeter] Respiratory Rate Blood Pressure 119/53 L Blood Pressure [Ri ght Upper Arm] Pulse Oximetry 91 92 95 [facility] 04/22/24 13:15 04/22/24 13:24 04/22/24 13:31 Temperature Pulse Rate 86 91 90 Pulse Rate [Pulse Oximeter] Respiratory Rate Blood Pressure 133/63 Blood Pressure [Ri ght Upper Arm] Pulse Oximetry 92 94 94 [facility] 04/22/24 13:32 04/22/24 13:33 04/22/24 13:45 Temperature Pulse Rate 91 89 88 Pulse Rate [Pulse Oximeter] Respiratory Rate Blood Pressure 131/89 Blood Pressure [Ri ght Upper Arm] Pulse Oximetry 94 93 92 [facility] 04/22/24 14:00 04/22/24 14:02 04/22/24 14:15 Temperature Pulse Rate 89 88 88 Pulse Rate [Pulse Oximeter] Respiratory Rate Blood Pressure 115/56 L Blood Pressure [Ri ght Upper Arm] Pulse Oximetry 91 91 91 [facility] 04/22/24 14:30 04/22/24 14:32 04/22/24 14:45 Temperature Pulse Rate 85 84 85 Pulse Rate [Pulse Oximeter] Respiratory Rate Blood Pressure 107/56 L Blood Pressure [Ri ght Upper Arm] Pulse Oximetry 92 92 93 [facility] 04/22/24 15:13 Temperature 98.4 F Pulse Rate Pulse Rate [Pulse Oximeter] Respiratory Rate 18 Blood Pressure Blood Pressure [Ri ght Upper Arm] Pulse Oximetry Oxygen Delivery Me od Labs Labs: Laboratory Results - last 24 hr 04/22/24 04/22/24 04/22/24 11:00 11:30 11:45 WBC 22.15 H RBC 4.25 Hgb 12.2 Hct 37.2 MCV 88 MCH 29 MCHC 33 RDW Coeff of [place]ian[place] 15.5 Plt Count 208 Neut % (Auto) 88.5 H Lymph % (Auto) 3.6 L [place] % (Auto) 6.0 Eos % (Auto) 0.6 Baso % (Auto) 0.3 Neut # (Auto) 19.60 H Lymph # (Auto) 0.80 L [place] # (Auto) 1.30 H Eos # (Auto) 0.10 Baso # (Auto) 0.10 Abs Immat Gran (auto) 0.20 Imm/Tot Granulo (auto) 1.0 VBG pH 7.473 H VBG pCO2 38 L VBG pO2 42.2 VBG HCO3 28 Sodium 136 Potassium 3.9 Chloride 103 Carbon Dioxide 25 Anion Gap 8 BUN 31 H Creatinine 1.5 Estimated Creat Clear 30.57 Estimated GFR 37 Glucose 119 H Lactate 1.0 Calcium 8.7 Total Bilirubin 2.2 H AST 38 H ALT 31 Alkaline Phosphatase 231 H Troponin I 0.04 C-Reactive Protein 18.2 H NT-Pro-B Natriuret Pep 2660 Total Protein 5.9 L Albumin 3.1 L Procalcitonin 17.40 H Urine Color Henna A Urine Appearance Slightly Cloudy A Urine pH 6.0 Ur Specific [place] 1.020 Urine Protein 1+ A Urine Glucose (UA) Negative Urine Ketones Negative Urine Blood 2+ A Urine Nitrite Positive A Urine Bilirubin Negative Urine Urobilinogen 2.0 A Ur Leukocyte Esterase 1+ A Urine RBC 2-5 A Urine WBC 2-5 Ur Squamous Epith Cells Few Urine Bacteria Many A SARS-CoV-2 (PCR) Negative SARS-CoV-2 Influenza Type A (PCR) Negative PCR FLU A Influenza Type B (PCR) Negative PCR FLU B RSV (PCR) Negative PCR RSV
[2024-04-23] MEDS: LIDOCAINE 5% PATCH 1 PATCH TRANSDERMA (12:41)
[2024-04-23 13:30] VITALS: BP 108/55; PULSE 91; RESP 18; TEMP 36.7; O2SAT 89
[2024-04-23 15:00] VITALS: BP 105/54; PULSE 81; RESP 18; O2SAT 91; O2SAT 92
--- NOTE | 2024-04-23 20:03 | PC.NURSE ---
Nursing Care Hours: [id number] Pt this shift in distress this AM d/t back and leg pain and nausea. Treated per eMAR and treatments effective. Pt took a long nap and states it feels so good to sleep without pain. Low supplemental O2 used during rest to keep sats between 88-92% IV in L AC leaking and removed. New IV in L hand, tolerated well, patent. Infused ABX and LR. Low appetite. Around dinner time, nausea increased and zofran given again. Pt reported a BM with blood stain. Flushed before staff observed. Reported to hospitalist, no BM since. Pt washed and changed gown independently. Refusing TEDS and SCD d/t discomfort.
[2024-04-23] MEDS: GABAPENTIN 600 MG TABLET PO (20:54)
[2024-04-23] MEDS: ENOXAPARIN 40 MG/0.4 ML INJ SUBCUT (20:55)
[2024-04-23 22:51] VITALS: BP 105/57; PULSE 82; RESP 22; TEMP 36.8; O2SAT 88
[2024-04-24] VITALS (8 sets, daily range): BP systolic 99–124; BP diastolic 43–66; PULSE 83–91; RESP 16–24; TEMP 36.7–36.8; O2SAT 84–93
[2024-04-24] MEDS: ONDANSETRON 2 MG/ML inj 4 MG IVP (04:43)
[2024-04-24] MEDS: OXYCODONE 5 MG TABLET PO ×2 (04:43→14:01)
[2024-04-24] MEDS: ACETAMINOPHEN 325 MG TABLET 650 MG PO ×5 (04:43→21:24)
[2024-04-24] MEDS: LACTATED RINGERS 1000 ML 1,000 ML 125 ML IV (06:26)
--- NOTE | 2024-04-24 06:28 | PC.NURSE ---
End of shift [id number] ? Pt alert, oriented, cooperative. Up with standby assistance in room, continent of bladder during shift. Pt reported pain in low back, medication given per MAR with pt verbalizing improvement. Tolerating O2 at 1.5 via nasal cannula while sleeping to maintain saturation above 88% per MD order. Pt appears to be resting comfortably at end of shift with call light within reach.??
--- NOTE | 2024-04-24 07:56 | PC.NURSE ---
Expanse downtime approximately [id number] 04/24/2024
[2024-04-24 08:26] LABS: White Blood Count* 16.71 K/uL (4.50-11.00)
[2024-04-24 08:27] LABS: Basophils Percent Auto 0.4 % (0.0-3.0); Eosinophils Percent Auto 1.3 % (0.0-7.0); Hematocrit 40.3 % (33.0-51.0); Immature Granulocytes Pct Auto 1.9 %; Lymphocytes Percent Auto 3.9 % (20-44); Mean Corpuscular HGB Conc 32 gm/dL (32-36); Mean Corpuscular Hemoglobin 29 pg (26-34); Mean Corpuscular Volume 90 fL (80-100); Monocytes Percent Auto 6.8 % (0.0-11.0); Neutrophils Percent Auto 85.7 % (42.0-72.0); Platelet Count* 260 K/uL (140-440); RDW Coefficient of Variation % 16.2 % (11.5-15.5); Red Blood Count 4.49 m/uL (4.00-5.20); Slide Review Reflex No
[2024-04-24 08:56] LABS: Anion Gap 5 mEq/L (7-15); Blood Urea Nitrogen* 21 mg/dL (7-30); Calcium* 8.4 mg/dL (8.4-10.6); Carbon Dioxide* 29 mmol/L (20-32); Chloride* 103 mmol/L (96-114); Creatinine* 1.4 mg/dL (0.5-1.5); Est. Creatinine Clearance* 32.75; Estimated Glomerular Filt Rate 41 ml/min; Glucose* 91 mg/dL (60-115); Potassium* 4.3 mmol/L (3.6-5.1); Sodium* 137 mmol/L (135-149); Total Protein* 5.9 g/dL (6.0-8.3)
[2024-04-24 08:57] LABS: Alanine Aminotransferase* 28 U/L (4-35); Albumin* 2.9 g/dL (3.3-5.0); Alkaline Phosphatase* 234 U/L (40-150); Aspartate Amino Transferase* 35 U/L (12-35); Bilirubin Direct* 0.9 mg/dL (0.0-0.5); Bilirubin Total* 1.1 mg/dL (0.1-1.5); C Reactive Protein* 11.9 mg/dL (0.5-1.0); Procalcitonin* 7.08 ng/mL (<0.50)
[2024-04-24] MEDS: cefTRIAXone 2 GM in 0.9 % SODIUM CHLORIDE Mini-bag 100 ML IVPB (09:44)
[2024-04-24] MEDS: AZITHROMYCIN 250 MG TABLET 500 MG PO (09:45)
[2024-04-24] MEDS: HYDROXYCHLOROQUINE 200 MG TABLET PO (09:45)
[2024-04-24] MEDS: DULOXETINE 30 MG CAPSULE DR 60 MG PO (09:46)
[2024-04-24] MEDS: GABAPENTIN 600 MG TABLET 1200 MG PO (09:46)
[2024-04-24] MEDS: POTASSIUM CHLORIDE 10 MEQ CAPSULE ER 20 MEQ PO (09:46)
[2024-04-24] MEDS: LIDOCAINE 5% PATCH 1 PATCH TRANSDERMA (12:35)
--- NOTE | 2024-04-24 14:43 | P.IMPN_ITS ---
Progress Note: A&P Assessment and plan (1) Right upper lobe pneumonia: Problem details: CT images showed ground-glass opacities and patchy infiltrates primarily in the right upper lobe with right hilar lymph adenopathy also present Continue ceftriaxone and azithromycin, gentle IV hydration until adequate oral intake Pulmonary hygiene including incentive spirometry, aerobika Oxygen supplementation to maintain saturations >92%, continuing to wean as able - encourage ambulation multiple times daily Leukocytosis continues down trending, Blood culture negative Status: Acute (2) Acute pyelonephritis: Problem details: CT images show changes consistent with right kidney infection. Ill-defined hypodensities in the right kidney with subtle hydronephrosis and mild mucosal enhancement in the collecting system and proximal ureter concerning for urinary infection and pyelonephritis. The ill-defined hypodensities may be related to underlying phlegmon formation in the setting of pyelonephritis Continue ceftriaxone and azithromycin, gentle IV hydration until adequate oral intake Urine culture growing Gram-negative rods, pansensitive Outpatient follow-up hypodensities Status: Acute (3) Hepatitis: Problem details: New elevation of total bilirubin from 0.6-2.2 in the past 15 months and increase in alk-phos from 105-231 - down trending, continue to trend CT shows Enlarged left hepatic lobe and caudate, can be seen in setting of cirrhotic morphology. No suspicious hepatic lesions identified. Status post cholecystectomy Outpatient follow-up with PCP, GI Status: Acute (4) Acute kidney injury: Problem details: New elevation of creatinine from 1.0-1.5 since last August - down trending Avoid nephrotoxic medications, renally dosing medications, continue to monitor Status: Acute (5) Obesity: Problem details: BMI 48.8 Status: Acute (6) Hypertension: Problem details: Due to acute kidney injury and relatively low blood pressure will hold antihypertensive medicines temporarily Will restart when appropriate Status: Acute (7) Osteoarthritis: Problem details: Polyarthralgia. Chronic low back pain, fibromyalgia Hold Celebrex due to acute kidney injury Lidocaine patch, ice and/or heat, P.r.n. oxycodone and scheduled acetaminophen for pain (monitoring LFTs) - addressed with patient that we would not send her home on narcotics for chronic pain but to follow-up with PCP for ongoing management recommendations Status: Acute (8) Obstructive sleep apnea syndrome: Problem details: Sleep study (2019, ). CPAP regularly. obtain CPAP from home Status: Acute (9) Back pain: Problem details: Chronic Lidocaine patch, Tylenol, oxycodone - not going home with narcotics Encourage ambulation and home exercises she has learned from PT Status: Acute Plan Continue IV antibiotics, monitoring improvement, encourage ambulation, possible discharge 1-2 days Time Spent With Patient Total time spent: Total time spent caring for the patient today was 45 minutes. This includes time spent for the visit reviewing the chart, time spent during the visit, time spent after the visit and documentation and planning in coordination of care. Subjective Date Seen: 04/24/24 Interval history: Patient feeling much improved this morning. Still requiring oxygen supplementation however this is decreasing. Has remained afebrile. Tolerating orals without nausea vomiting. Complains again of chronic pains and concerns of previous PCPs not taking her fibromyalgia and Sjogren's seriously. She is looking for a new PCP. Believes the oxycodone has been helpful for her during this hospital course. We did discuss however that she would not be discharged on a narcotic for her chronic pains. Exam Narrative: Exam Narrative: PHYSICAL EXAM General: Pleasant, conversant, NAD Cardiovascular: RRR, S1S2. Pulmonary: CTA bilaterally without rhonchi, rales, expiratory wheezes. No dyspnea on 1.5 L per NC Neurological: Alert, answering questions appropriately, cranial nerves intact, no focal findings Extremities: No gross joint deformity or swelling. AROMI. Neurovascularly intact Skin: Warm, dry. Const: Vital Signs, click to edit/add: Vital Signs - 24 hr 04/23/24 15:00 04/23/24 15:00 04/23/24 15:00 Temperature Pulse Rate [Right Pulse Oximeter] 81 Respiratory Rate 18 18 18 Blood Pressure [Ri ght Arm] 105/54 L Pulse Oximetry 92 91 Oxygen Delivery Me thod Room Air Room Air Oxygen Flow Rate 04/23/24 22:51 04/24/24 00:18 04/24/24 00:20 Temperature 98.2 F 98.3 F Pulse Rate [Right Pulse Oximeter] 82 85 Respiratory Rate 22 24 24 Blood Pressure [Ri ght Arm] 105/57 L 122/56 L Pulse Oximetry 88 93 93 Oxygen Delivery Me thod Room Air Room Air Room Air Oxygen Flow Rate 04/24/24 05:10 04/24/24 07:30 04/24/24 07:30 Temperature Pulse Rate [Right Pulse Oximeter] 83 88 Respiratory Rate 16 18 18 Blood Pressure [Ri ght Arm] 119/50 L Pulse Oximetry 90 89 Oxygen Delivery Me thod Nasal Cannula Room Air Oxygen Flow Rate 1.5 04/24/24 07:30 04/24/24 11:00 Temperature 98.1 F Pulse Rate [Right Pulse Oximeter] 88 85 Respiratory Rate 18 18 Blood Pressure [Ri ght Arm] 106/55 L 114/56 L Pulse Oximetry 89 89 Oxygen Delivery Me thod Room Air Room Air Oxygen Flow Rate Labs Labs: Laboratory Results - last 24 hr 04/24/24 06:41 WBC 16.71 H RBC 4.49 Hgb 13.0 Hct 40.3 MCV 90 MCH 29 MCHC 32 RDW Coeff of Dianna 16.2 H Plt Count 260 Neut % (Auto) 85.7 H Lymph % (Auto) 3.9 L [place] % (Auto) 6.8 Eos % (Auto) 1.3 Baso % (Auto) 0.4 Neut # (Auto) 14.30 H Lymph # (Auto) 0.70 L [place] # (Auto) 1.10 H Eos # (Auto) 0.20 Baso # (Auto) 0.10 Abs Immat Gran (auto) 0.30 Imm/Tot Granulo (auto) 1.9 Sodium 137 Potassium 4.3 Chloride 103 Carbon Dioxide 29 Anion Gap 5 L BUN 21 Creatinine 1.4 Estimated Creat Clear 32.75 Estimated GFR 41 Glucose 91 Calcium 8.4 Total Bilirubin 1.1 Direct Bilirubin 0.9 H AST 35 ALT 28 Alkaline Phosphatase 234 H C-Reactive Protein 11.9 H Total Protein 5.9 L Albumin 2.9 L Procalcitonin 7.08 H
[2024-04-24] MEDS: diphenhydrAMINE 12.5 MG/5 ML ORAL SOLN PO (18:42)
--- NOTE | 2024-04-24 20:17 | PC.NURSE ---
Nursing Care Hours: [id number] Pt this shift calm and cooperative with cares, alert and oriented. No c/o nausea today. Pain rated 2-3/10 with one episode of sharp lateral hip pain, treated per eMAR. Up independently, took a shower. IV patent and SL. 1500 VS, pt hypotensive and hypoxic, hospitalist made aware. After shower, c/o itchy back. Raised red rash noted on upper back and neck. Pt states she believes it is d/t sensitivity to gown. Family brought home nightgown in. Benadryl given PO and Vanicream applied. Walked shrestha x2. Using IS and Aerobika.
[2024-04-24] MEDS: ENOXAPARIN 40 MG/0.4 ML INJ SUBCUT (21:25)
[2024-04-24] MEDS: GABAPENTIN 600 MG TABLET PO (21:25)
[2024-04-24] MEDS: SODIUM CHLORIDE 0.9 % (FLUSH) 10 ML SYRINGE 5 ML IVF (21:25)
[2024-04-25] MEDS: OXYCODONE 5 MG TABLET PO (00:31)
[2024-04-25] MEDS: ACETAMINOPHEN 325 MG TABLET 650 MG PO ×3 (00:33→10:32)
[2024-04-25 00:37] VITALS: BP 107/54; RESP 20; TEMP 36.8; O2SAT 86; O2SAT 92
[2024-04-25 03:39] VITALS: BP 109/50; PULSE 81; RESP 20; TEMP 36.6; O2SAT 91
[2024-04-25 06:24] LABS: Basophils Percent Auto 0.7 % (0.0-3.0); Eosinophils Percent Auto 1.6 % (0.0-7.0); Hematocrit 35.8 % (33.0-51.0); Hemoglobin* 11.4 gm/dL (12.0-16.0); Immature Granulocytes Pct Auto 1.8 %; Lymphocytes Percent Auto 6.2 % (20-44); Mean Corpuscular HGB Conc 32 gm/dL (32-36); Mean Corpuscular Hemoglobin 29 pg (26-34); Mean Corpuscular Volume 91 fL (80-100); Monocytes Percent Auto 8.3 % (0.0-11.0); Neutrophils Percent Auto 81.4 % (42.0-72.0); Platelet Count* 342 K/uL (140-440); RDW Coefficient of Variation % 16.4 % (11.5-15.5); Red Blood Count 3.95 m/uL (4.00-5.20); Slide Review Reflex No; White Blood Count* 12.23 K/uL (4.50-11.00)
[2024-04-25 06:57] LABS: Albumin* 2.9 g/dL (3.3-5.0); Chloride* 104 mmol/L (96-114)
[2024-04-25 06:58] LABS: Potassium* 4.4 mmol/L (3.6-5.1); Sodium* 136 mmol/L (135-149)
[2024-04-25 07:00] LABS: Anion Gap 3 mEq/L (7-15); Aspartate Amino Transferase* 42 U/L (12-35); Bilirubin Direct* 0.7 mg/dL (0.0-0.5); Bilirubin Total* 0.8 mg/dL (0.1-1.5); Carbon Dioxide* 29 mmol/L (20-32); Creatinine* 1.3 mg/dL (0.5-1.5); Est. Creatinine Clearance* 35.27; Estimated Glomerular Filt Rate 45 ml/min
[2024-04-25 07:01] LABS: Alanine Aminotransferase* 31 U/L (4-35); Alkaline Phosphatase* 239 U/L (40-150); Blood Urea Nitrogen* 18 mg/dL (7-30); Calcium* 8.2 mg/dL (8.4-10.6); Glucose* 97 mg/dL (60-115)
[2024-04-25 07:03] LABS: C Reactive Protein* 8.1 mg/dL (0.5-1.0)
[2024-04-25 07:45] VITALS: BP 113/87; PULSE 81; RESP 14; O2SAT 92
--- NOTE | 2024-04-25 07:48 | PC.NURSE ---
Pt is alert and oriented x3. Afebrile. Pt reports 1-6/10 pain in lower back pain, managed with scheduled and PRN medication. Pt was placed on 1L via nasal cannula for O2 stats ranging between 85-86% on room air. When on 1 L O2 pt's O2 stats ranged between 91-94%, pt was titrated down to 0.5L and O2 stats ranged between 90-92%, attempted to titrate down to room air pt O2 fell to 80%, 0.5 L nasal cannula was placed back on stating between 90-92%.?Pt?s lung sounds are clear with a soft expiratory wheeze. Pt is up ad keira in room, voiding, and slept intermittently throughout night.
[2024-04-25] MEDS: POTASSIUM CHLORIDE 10 MEQ CAPSULE ER 20 MEQ PO (08:31)
[2024-04-25] MEDS: cefTRIAXone 2 GM in 0.9 % SODIUM CHLORIDE Mini-bag 100 ML IVPB (08:31)
[2024-04-25] MEDS: AZITHROMYCIN 250 MG TABLET 500 MG PO (08:32)
[2024-04-25] MEDS: DULOXETINE 30 MG CAPSULE DR 60 MG PO (08:32)
[2024-04-25] MEDS: GABAPENTIN 600 MG TABLET 1200 MG PO (08:32)
[2024-04-25] MEDS: HYDROXYCHLOROQUINE 200 MG TABLET PO (08:33)
[2024-04-25] MEDS: SODIUM CHLORIDE 0.9 % (FLUSH) 10 ML SYRINGE 5 ML IVF (08:33)
[2024-04-25] MEDS: ONDANSETRON 2 MG/ML inj 4 MG IVP (10:33)
[2024-04-25] MEDS: ONDANSETRON ODT 4 MG TAB PO (10:58)
--- NOTE | 2024-04-25 11:50 | PC.NURSE ---
Nursing Care Hours: [id number] Pt this shift calm and cooperative with cares, alert and oriented. Independent in room. Voiding appropriately. Mild nausea d/t noxious smell that staff is not smelling. Discussed possible effects of covid less than 1 year ago. Nausea medication given with aromatherapy. VSS. LS clear, mild cough noted. Pt using IS and vibratory PEP. Motel Keeper really encouraged using these Tx frequenlty. Trial walk in the shrestha to see spo2 sats. Dropped to 87% and pt became dyspneic quickly and c/o weak shaky legs. Ambulated about 100 ft, recovered quickly while sitting up in chair. IV removed for discharge. Instructions went over with pt and adult child. Discussed cleaning CPAP at home. Pt says she does not do it that much and policy writer discussed this being a risk factor for recurrent PNX. Rash on upper back and neck fading, no c/o itching.
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
[2024-04-26 15:05] LABS: Hep A Ab, IgM Negative (Negative); Hep B Core Ab, IgM Negative (Negative); Hep B Surface Antigen Negative (Negative); Hep C Ab by CIA Index 0.09 IV; Hep C Ab by CIA Interp Negative (Negative)
== END 2024-04-25 11:30 | disposition home or self-care (01) | DRG 689 ==
LOC: ED 14:37 → MEDSURG 15:30
PROVIDERS: Physician Assistant; Admitting Provider Family Medicine; Emergency Provider Family Medicine; PCP Family Medicine; Visit Provider Family Medicine
DX: N10 Acute pyelonephritis (principal); J18.9 Pneumonia, unspecified organism; B17.9 Acute viral hepatitis, unspecified; Z68.42 Body mass index [BMI] 45.0-49.9, adult; F33.9 Major depressive disorder, recurrent, unspecified; N17.9 Acute kidney failure, unspecified; B96.20 Unspecified Escherichia coli [E. coli] as the cause of diseases classified elsewhere; N13.6 Pyonephrosis; G47.33 Obstructive sleep apnea (adult) (pediatric); E66.01 Morbid (severe) obesity due to excess calories; M35.00 Sjogren syndrome, unspecified; I10 Essential (primary) hypertension; J45.909 Unspecified asthma, uncomplicated; G89.29 Other chronic pain; M15.9 Polyosteoarthritis, unspecified; M54.9 Dorsalgia, unspecified; B96.89 Other specified bacterial agents as the cause of diseases classified elsewhere
CPT/HCPCS: 36415; 71260; 74177; 80048; 80053; 80074; 80076; 81001; 82803; 83605; 83735; 83880; 84145; 84484; 85025; 86140; 87040; 87086; 87186; 87631; 93005; 94664; 94761; 97110; 97116; 97161; 99284; 99285; A9270; J0696; J1650; J2405; J7120; Q9967

== ENCOUNTER 2024-05-09 14:00 | Outpatient (RCR) | payer OTHER, SELFPAY | END 2024-09-01 09:50 | disposition home or self-care (01) | PROVIDERS: PCP Family Medicine; Visit Provider Internal Medicine Rheumatology | DX: M54.2 Cervicalgia (principal); M48.061 Spinal stenosis, lumbar region without neurogenic claudication; M75.102 Unspecified rotator cuff tear or rupture of left shoulder, not specified as traumatic; M25.512 Pain in left shoulder; M54.50 Low back pain, unspecified; Z51.89 Encounter for other specified aftercare | CPT/HCPCS: 97110; 97162 ==

== ENCOUNTER 2024-05-12 08:56 | Outpatient (CLI) | payer OTHER, SELFPAY ==
--- NOTE | 2024-05-12 09:15 | CRLHL7_ITS ---
For Patients: As a result of the Cures Act, medical imaging exams and procedure reports are released immediately into your electronic medical record. You may view this report before your referring provider. If you have questions, please contact your health care provider. INDICATION: Inflammatory liver disease TECHNIQUE: Multiplanar imaging of the abdomen was performed without and with 30 cc of Dotarem contrast material IV. COMPARISON: Chest/abdomen/pelvis CT of 04/22/2024 FINDINGS: The liver is fatty and suspected to be cirrhotic. No diffusion restriction or abnormal contrast enhancement is demonstrated in the liver. The portal vein is mildly enlarged to 1.4 cm in diameter. The spleen is mildly enlarged. Several splenules are noted. A small recanalized umbilical vein is suggested. No ascites evident. Postop changes of cholecystectomy are again noted. The bile ducts are normal in caliber. The adrenal glands and pancreas are within normal limits. Benign renal parenchymal cysts are noted bilaterally. No lymphadenopathy is apparent. No intrinsic bowel abnormality is evident. No free fluid is demonstrated. IMPRESSION: 1. Fatty and suspected cirrhotic liver. No liver mass evident. 2. Suspected portal venous hypertension with mild portal vein enlargement, mild splenomegaly and suspected recanalized umbilical vein. 3. Post cholecystectomy. 4. Small renal cysts bilaterally. Dictated by Janusz Garcia MD @ 05/14/2024 10:52:18 AM (Electronically Signed)
== END 2024-05-12 08:57 | disposition home or self-care (01) ==
LOC: MRI 08:56
PROVIDERS: PCP Family Medicine; Visit Provider Family Medicine
DX: K75.9 Inflammatory liver disease, unspecified (principal); K76.0 Fatty (change of) liver, not elsewhere classified; N28.1 Cyst of kidney, acquired
CPT/HCPCS: 74183; 87086; 87186; A9575

== ENCOUNTER 2024-05-19 13:22 | Outpatient (CLI) | payer OTHER, SELFPAY | END 2024-05-19 13:23 | disposition home or self-care (01) | LOC: FRMREF 13:23 | PROVIDERS: PCP Family Medicine; Visit Provider Family Medicine | DX: N10 Acute pyelonephritis (principal) | CPT/HCPCS: 80053; 87086 ==

== ENCOUNTER 2024-06-28 10:22 | Outpatient (CLI) | payer OTHER, SELFPAY | END 2024-06-28 10:23 | disposition home or self-care (01) | LOC: NFLDREF 06-30 09:40 | PROVIDERS: PCP Family Medicine; Referring Provider Family Medicine; Visit Provider Physician Assistant Medical | DX: R39.9 Unspecified symptoms and signs involving the genitourinary system (principal); M54.9 Dorsalgia, unspecified; J06.9 Acute upper respiratory infection, unspecified; N39.0 Urinary tract infection, site not specified; R10.13 Epigastric pain | CPT/HCPCS: 87086 ==

== ENCOUNTER 2024-08-04 10:11 | Outpatient (CLI) | payer OTHER, SELFPAY | END 2024-08-04 10:12 | disposition home or self-care (01) | LOC: NFLDREF 08-05 11:03 | PROVIDERS: PCP Family Medicine; Referring Provider Family Medicine; Visit Provider Family Medicine | DX: I10 Essential (primary) hypertension (principal); E83.51 Hypocalcemia | CPT/HCPCS: 80053 ==